=== PATIENT | male | born 1935 | race Caucasian/White ===

== ENCOUNTER 2016-12-25 07:08 | Outpatient (CLI) | payer MEDICARE, OTHER | END 2016-12-25 07:09 | disposition home or self-care (01) | DX: E11.9 Type 2 diabetes mellitus without complications (principal); I10 Essential (primary) hypertension; J44.9 Chronic obstructive pulmonary disease, unspecified ==

== ENCOUNTER 2017-08-21 08:27 | Outpatient (CLI) | payer MEDICARE, OTHER ==
[2017-08-21 10:27] LABS: BASOPHILS # (AUTO) 0.1 10^3/uL (0.0-0.1); BASOPHILS % (AUTO) 0.8 %; EOSINOPHILS # (AUTO) 0.2 10^3/uL (0.0-0.7); EOSINOPHILS % (AUTO) 2.2 %; HCT - HEMATOCRIT 42.7 % (42.0-52.0); HGB - HEMOGLOBIN 14.2 g/dL (14.0-18.0); LYMPHOCYTES # (AUTO) 2.1 10^3/uL (1.5-3.5); LYMPHOCYTES % (AUTO) 21.3 %; MEAN CORPUSCULAR HEMOGLOBIN 31.7 pg (27.0-31.0); MEAN CORPUSCULAR HGB CONC 33.3 g/dL (32.0-36.0); MEAN CORPUSCULAR VOLUME 95.1 fL (80.0-94.0); MEAN PLATELET VOLUME 9.2 fL (7.4-11.4); MONOCYTES % (AUTO) 10.1 %; NEUTROPHILS # (AUTO) 6.6 10^3/uL (1.5-6.6); NEUTROPHILS % (AUTO) 65.6 %; RED BLOOD COUNT 4.49 10^6/uL (4.70-6.10); RED CELL DISTRIBUTION WIDTH 13.7 % (12.0-15.0)
[2017-08-21 10:46] LABS: ALBUMIN/GLOBULIN RATIO 1.1 (1.0-2.2); BILIRUBIN,TOTAL 0.8 mg/dL (0.2-1.0); BUN - BLOOD UREA NITROGEN 21 mg/dL (6-20); CALCIUM 9.4 mg/dL (8.5-10.3); CARBON DIOXIDE - CO2 29 mmol/L (21-32); CHLORIDE 104 mmol/L (101-111); CHOL/HDL RATIO 3.8 (<5.0); CHOLESTEROL 177 mg/dL; CREATININE 1.4 mg/dL (0.6-1.2); GFR - MDRD 49 (>89); GLUCOSE 106 mg/dL (70-100); HDL CHOLESTEROL 47 mg/dL; LDL/HDL RATIO 2.5 (<3.6); POTASSIUM 4.2 mmol/L (3.5-5.0); SODIUM 141 mmol/L (135-145); TOTAL PROTEIN 6.8 g/dL (6.7-8.2); TRIGLYCERIDES 72 mg/dL; VLDL CHOLESTEROL 14 mg/dL
[2017-08-21 11:14] LABS: HEMOGLOBIN A1C 0.72 g/dL
== END 2017-08-21 08:28 | disposition home or self-care (01) ==
LOC: LAB.F 08:27
PROVIDERS: ATTEND Internal Medicine
DX: I10 Essential (primary) hypertension (principal); E11.9 Type 2 diabetes mellitus without complications; E78.00 Pure hypercholesterolemia, unspecified; E78.5 Hyperlipidemia, unspecified
CPT/HCPCS: 36415; 80053; 80061; 83036; 84443; 85025

== ENCOUNTER 2018-01-15 09:35 | Outpatient (CLI) | payer MEDICARE, OTHER ==
[2018-01-15 17:28] LABS: CALCIUM 8.9 mg/dL (8.5-10.3); CREATININE 1.2 mg/dL (0.6-1.2)
[2018-01-15 18:07] LABS: HB2 TOTAL 15.2 g/dL; HEMOGLOBIN A1C 0.72 g/dL; HEMOGLOBIN A1C % 6.5 % (4.6-6.2)
== END 2018-01-15 09:36 | disposition home or self-care (01) ==
LOC: LAB.F 09:35
PROVIDERS: ATTEND Family Medicine
DX: I10 Essential (primary) hypertension (principal); E11.9 Type 2 diabetes mellitus without complications
CPT/HCPCS: 36415; 80048; 83036

== ENCOUNTER 2018-02-28 09:28 | Outpatient (CLI) | payer MEDICARE, OTHER ==
[2018-02-28 18:27] LABS: ALBUMIN 3.6 g/dL (3.2-5.5); ALBUMIN/GLOBULIN RATIO 1.2 (1.0-2.2); BILIRUBIN,TOTAL 0.7 mg/dL (0.2-1.0); CREATININE 1.3 mg/dL (0.6-1.2); TOTAL PROTEIN 6.6 g/dL (6.7-8.2)
== END 2018-02-28 09:29 | disposition home or self-care (01) ==
LOC: LAB.F 09:28
PROVIDERS: ATTEND Physician Assistant Medical
DX: Z51.81 Encounter for therapeutic drug level monitoring (principal); Z79.899 Other long term (current) drug therapy
CPT/HCPCS: 36415; 80053

== ENCOUNTER 2020-03-17 20:18 | Outpatient (CLI) | payer MEDICARE, OTHER | END 2020-03-17 20:19 | disposition critical access hospital (66) | LOC: EMS 20:18 | PROVIDERS: ATTEND Surgery | DX: R11.10 Vomiting, unspecified (principal); R53.1 Weakness; R73.09 Other abnormal glucose | CPT/HCPCS: A0425; A0429 ==

== ENCOUNTER 2020-03-17 20:45 | Emergency (ER) | payer MEDICARE, OTHER ==
--- NOTE | 2020-03-17 20:55 | ED Physician Documentation ---
History of Present Illness - Stated complaint Stated Complaint: FOUND DOWN, COFFEE GROUND VOMIT - Chief complaint Chief Complaint: Critical Care - History obtained from History obtained from: EMS - History of Present Illness Timing: Unknown Pain level now: 0 Improved by: no ameliorating factors Worsened by: no apparent exacerbating factors Associated symptoms: weakness, coffee-ground emesis - Additonal information Additional information: BIBJavier. called 911 when she found patient on bathroom floor between the toilet and the wall. Last known normal not known, nor is how long he was on the floor. Patient answers questions quietly, slowly, and with slurred speech but able to answer most questions with appropriate answers. He says he went to stand from toilet and found he was too weak to support himself. Review of Systems Constitutional: denies: Fever Eyes: denies: Loss of vision, Decreased vision, Photophobia Cardiac: denies: Chest pain / pressure Respiratory: denies: Dyspnea GI: reports: Vomiting, Hematemesis. denies: Abdominal Pain Musculoskeletal: reports: Reviewed and negative Neurologic: reports: Generalized weakness, Focal weakness. denies: Numbness, Headache PD PAST MEDICAL HISTORY - Past Medical History Cardiovascular: Hypertension Endocrine/Autoimmune: Type 2 diabetes - Past Surgical History Past Surgical History: No - Present Medications Home Medications: Ambulatory Orders Medication Instructions Recorded Confirmed Losartan [Cozaar] 50 mg PO BID 06/01/14 03/17/20 Metformin HCl 500 mg PO DAILY PRN 06/01/14 03/17/20 Rosuvastatin Calcium [Crestor] 5 mg PO DAILY 03/17/20 03/17/20 - Allergies Allergies/Adverse Reactions: Allergies Allergy/AdvReac Type Severity Reaction Status Date / Time No Known Drug Allergies Allergy Verified 03/17/20 20:53 - Social History Does the pt smoke?: No Smoking Status: Never smoker Does the pt drink ETOH?: Yes Does the pt have substance abuse?: No PD ED PE NORMAL - Vitals Vital signs reviewed: Yes - General General: Alert and oriented X 3, Well developed/nourished - HEENT HEENT: Atraumatic, PERRL, Moist mucous membranes - Neck Neck: Supple, no meningeal sign, No bony TTP - Respiratory Respiratory: No respiratory distress, Clear bilaterally - Abdomen Abdomen: Soft, Non tender - Back Back: No spinal TTP - Derm Derm: Normal color, Warm and dry - Extremities Extremities: Normal ROM s pain, No edema - Neuro Eye Opening: Spontaneous Motor: Obeys Commands Verbal: Oriented GCS Score: 15 PD ED PE EXPANDED - HEENT HEENT: PERRL - Cardiac Cardiac: Tachy, Regular Rhythm - Neuro Neuro: Dysarthria, Other (left facial droop. right gaze preference. cannot track (with gaze) past midline to left. left radha-neglect (initially does not follow commands to raise left arm or left leg, but does so after I test right side)) - GCS Eye Opening: Spontaneous Motor: Obeys Commands Verbal: Oriented Total: 15 Results - Vitals Vitals: Oxygen O2 Source Room air - EKG (time done) No standard instances Rate: Rate (enter#) (136), Tachy [place]: LAD Intervals: Normal NE QRS: Normal Ischemia: Normal ST segments Other comments: Other comments (late transition/poor r wave progression) - Labs Labs: Microbiology 03/17/20 21:40 Urine Culture - Preliminary Urine,Catheterized CULTURE IN PROGRESS. RESULTS TO FOLLOW. Laboratory Tests 03/17/20 03/17/20 03/17/20 20:50 20:50 20:50 WBC 25.5 H RBC 4.82 Hgb 15.2 Hct 46.3 MCV 96.1 H MCH 31.5 H MCHC 32.8 RDW 13.6 Plt Count 315 MPV 10.3 Neut # (Auto) Not Reportable Lymph # (Auto) Not Reportable Sunflower # (Auto) Not Reportable Eos # (Auto) Not Reportable Baso # (Auto) Not Reportable Absolute Nucleated RBC Not Reportable Total Counted 100 Band Neuts % (Manual) 10 Abnorm Lymph % (Manual) 0 Nucleated RBC % Not Reportable Neutrophils # (Manual) 23.0 H Lymphocytes # (Manual) 0.5 L Monocytes # (Manual) 2.0 H Eosinophils # (Manual) 0.0 Basophils # (Manual) 0.0 Differential Comment MANUAL DIFFERENTIAL Manual Slide Review Indicated WBC Morphology NORMAL APPEARANCE Platelet Estimate NORMAL (130-450,000) Platelet Morphology NORMAL APPEARANCE RBC Morph Micro Appear NORMAL APPEARANCE PT 12.7 H INR 1.1 APTT 30.0 Sodium 140 Potassium 4.1 Chloride 106 Carbon Dioxide 20 L Anion Gap 14.0 H BUN 28 H Creatinine 1.8 H Estimated GFR (MDRD) 36 L Glucose 240 H Calcium 9.6 Total Bilirubin 1.0 AST 57 H ALT 24 Alkaline Phosphatase 66 Total Creatine Kinase 3176 H* CK-MB (CK-2) Troponin I High Sens Total Protein 7.4 Albumin 3.9 Globulin 3.5 Albumin/Globulin Ratio 1.1 Lipase 27 TSH Urine Color Urine Clarity Urine pH Ur Specific [place] Urine Protein Urine Glucose (UA) Urine Ketones Urine Occult Blood Urine Nitrite Urine Bilirubin Urine Urobilinogen Ur Leukocyte Esterase Urine RBC Urine WBC Ur Squamous Epith Cells Urine Bacteria Urine Casts Ur Microscopic Review Urine Culture Comments 03/17/20 03/17/20 03/17/20 20:50 20:50 20:50 WBC RBC Hgb Hct MCV MCH MCHC RDW Plt Count MPV Neut # (Auto) Lymph # (Auto) Sunflower # (Auto) Eos # (Auto) Baso # (Auto) Absolute Nucleated RBC Total Counted Band Neuts % (Manual) Abnorm Lymph % (Manual) Nucleated RBC % Neutrophils # (Manual) Lymphocytes # (Manual) Monocytes # (Manual) Eosinophils # (Manual) Basophils # (Manual) Differential Comment Manual Slide Review WBC Morphology Platelet Estimate Platelet Morphology RBC Morph Micro Appear PT INR APTT Sodium Potassium Chloride Carbon Dioxide Anion Gap BUN Creatinine Estimated GFR (MDRD) Glucose Calcium Total Bilirubin AST ALT Alkaline Phosphatase Total Creatine Kinase CK-MB (CK-2) 44.2 H Troponin I High Sens 62.7 H* Total Protein Albumin Globulin Albumin/Globulin Ratio Lipase TSH 3.52 Urine Color Urine Clarity Urine pH Ur Specific [place] Urine Protein Urine Glucose (UA) Urine Ketones Urine Occult Blood Urine Nitrite Urine Bilirubin Urine Urobilinogen Ur Leukocyte Esterase Urine RBC Urine WBC Ur Squamous Epith Cells Urine Bacteria Urine Casts Ur Microscopic Review Urine Culture Comments 03/17/20 21:40 WBC RBC Hgb Hct MCV MCH MCHC RDW Plt Count MPV Neut # (Auto) Lymph # (Auto) Sunflower # (Auto) Eos # (Auto) Baso # (Auto) Absolute Nucleated RBC Total Counted Band Neuts % (Manual) Abnorm Lymph % (Manual) Nucleated RBC % Neutrophils # (Manual) Lymphocytes # (Manual) Monocytes # (Manual) Eosinophils # (Manual) Basophils # (Manual) Differential Comment Manual Slide Review WBC Morphology Platelet Estimate Platelet Morphology RBC Morph Micro Appear PT INR APTT Sodium Potassium Chloride Carbon Dioxide Anion Gap BUN Creatinine Estimated GFR (MDRD) Glucose Calcium Total Bilirubin AST ALT Alkaline Phosphatase Total Creatine Kinase CK-MB (CK-2) Troponin I High Sens Total Protein Albumin Globulin Albumin/Globulin Ratio Lipase TSH Urine Color YELLOW Urine Clarity CLEAR Urine pH 6.5 Ur Specific [place] 1.015 Urine Protein NEGATIVE Urine Glucose (UA) NEGATIVE Urine Ketones NEGATIVE Urine Occult Blood MODERATE H Urine Nitrite POSITIVE H Urine Bilirubin NEGATIVE Urine Urobilinogen 0.2 (NORMAL) Ur Leukocyte Esterase SMALL H Urine RBC 6-10 H Urine WBC >25 H Ur Squamous Epith Cells NONE SEEN Urine Bacteria Few Urine Casts 6-10 Hyaline Casts Ur Microscopic Review INDICATED Urine Culture Comments INDICATED - Rads (name of study) CTH Radiology: Prelim report reviewed, See rad report CTA head Radiology: Prelim report reviewed, See rad report CTA neck Radiology: Prelim report reviewed, See rad report chest xray Radiology: Prelim report reviewed, See rad report PD MEDICAL DECISION MAKING - ED course Complexity details: reviewed results, re-evaluated patient, considered differential ED course: ED RN contacted patient's regarding "last known normal". She initially said it was in the morning, subsequently said several hours [employer] without being able to provide a more specific timeframe. On exam, he has right gaze preference, cannot track past midline when looking to his left. He has left radha-neglect. He has left facial droop with resulting dysarthric speech. reportedly had coffee-ground emesis at scene. he had coffee-ground material in his mouth on arrival; this was sampled with a gloved finger and was guaiac positive. He has h/o ICH (2013). Presentation is s/o CVA. tPA contraindications include unknown last known normal (unknown time of onset of deficits), EMS report of coffee-ground emesis on scene with material in patient's mouth on arrival that is strong guaiac positive, and h/o ICH (intraparenchymal hemorrhage documented on CTH 06/11/14. D/W Dr. Lovelace (hospitalist for [facility]). He recommends transfer to another hospital due to lack of MRI availability at [facility] over the next 4 days. I then d/w Dr. Wilks ([facility]). She recommends that I obtain CTA head/neck before considering transfer; if CTA head reveals large vessel occlusion, patient might benefit from transfer to another hospital with capability to perform intervention for this. CTA head/neck performed and these demonstrate no large vessel occlusion. I then d/w Dr. Royal at [facility] and he accepts patient for transfer. On reexamination prior to transfer, patient is asleep, awakens to voice. His deficits are unchanged, most notably the rightward gaze and left facial droop. He is disoriented to place, stating he is in his bed in his bedroom (could be result of waking him up from sleep). Departure - Departure Disposition: 02 Transfer Acute Care Hosp Clinical Impression: Cerebrovascular accident (CVA) Qualifiers: CVA mechanism: unspecified Qualified Code(s): I63.9 - Cerebral infarction, unspecified Condition: Serious Discharge Date/Time: 03/18/20 03:50
[2020-03-17] MEDS ORDERED: IOVERSOL 320 100 ML VIAL IVP ONE ×3 (20:57→23:53)
[2020-03-17] MEDS ORDERED: SODIUM CHLORIDE 0.9% 500 ML IV STA (20:58)
[2020-03-17 21:04] LABS: BASOPHILS % (AUTO) 0.4 %; HGB - HEMOGLOBIN 15.2 g/dL (14.0-18.0); LYMPHOCYTES % (AUTO) 3.5 %; MEAN CORPUSCULAR HEMOGLOBIN 31.5 pg (27.0-31.0); MEAN CORPUSCULAR HGB CONC 32.8 g/dL (32.0-36.0); MEAN CORPUSCULAR VOLUME 96.1 fL (80.0-94.0); MEAN PLATELET VOLUME 10.3 fL (7.4-11.4); MONOCYTES % (AUTO) 6.2 %; NEUTROPHILS % (AUTO) 88.6 %; PLT - PLATELET COUNT 315 10^3/uL (130-450); RED BLOOD COUNT 4.82 10^6/uL (4.70-6.10); RED CELL DISTRIBUTION WIDTH 13.6 % (12.0-15.0); WHITE BLOOD COUNT 25.5 x10^3/uL (4.8-10.8)
[2020-03-17 21:11] LABS: ABNORMAL LYMPHS % (MANUAL) 0 %
[2020-03-17 21:13] LABS: INR 1.1 (0.8-1.2); PT - PROTHROMBIN TIME 12.7 secs (9.9-12.6)
--- NOTE | 2020-03-17 21:16 | CT Report ---
Reason: weakness Procedure Date: 03/17/2020 Accession Number: [id number] / [id number] Procedure: CT - Head W/O Stroke Protocol CPT Code: Addended Final Report FULL RESULT: EXAM: CT HEAD EXAM DATE: 03/17/2020 09:08 PM. CLINICAL HISTORY: 84-year-old male. Weakness. COMPARISON: HEAD W/O 06/01/2014 10:21 AM. TECHNIQUE: Multiaxial CT images were obtained from the foramen magnum to the vertex. Reformats: Sagittal and coronal. IV contrast: None. In accordance with CT protocol optimization, one or more of the following dose reduction techniques were utilized for this exam: automated exposure control, adjustment of mA and/or KV based on patient size, or use of iterative reconstructive technique. FINDINGS: Parenchyma: No intraparenchymal hemorrhage. No evidence of mass, midline shift, or CT findings of acute infarction. [place]-white differentiation is distinct. Diffuse chronic microangiopathic white matter changes are evident. Extraaxial Spaces: Normal for age. No subdural or epidural collections identified. Ventricles: The ventricles and cortical sulci are enlarged, consistent with age-related tissue loss. Sinuses and orbits: Imaged paranasal sinuses, orbits, and mastoids show no significant abnormality. Bones: No evidence of fracture or calvarial defect. Other: Moderate atherosclerosis intracranial arteries. IMPRESSION: Generalized age-related cortical atrophic changes without evidence of acute intracranial abnormality. ASPECTS 10. RADIA The critical test notification system was initiated by Dr. Joe Odom at 09:13 PM on 03/17/2020. ADDENDUM: 03/17/20 21:21 The above critical test findings were discussed with Hubert Oviedo by Dr. Joe Odom at 09:21 PM on 03/17/2020.
--- NOTE | 2020-03-17 21:18 | XRAY Report ---
Reason: chest pain Procedure Date: 03/17/2020 Accession Number: [id number] / [id number] Procedure: XR - Chest 1 View X-Ray CPT Code: 14138 Final Report FULL RESULT: EXAM: CHEST RADIOGRAPHY EXAM DATE: 03/17/2020 09:10 PM. CLINICAL HISTORY: Chest pain. COMPARISON: CHEST 1 VIEW 06/01/2014 10:27 AM. TECHNIQUE: 1 view. FINDINGS: Lungs/Pleura: No focal opacities evident. No pleural effusion. No pneumothorax. Mediastinum: Normal heart size. Aortic arch calcifications noted. Other: None. IMPRESSION: Unremarkable chest radiograph. RADIA
[2020-03-17 21:20] LABS: BAND NEUTROPHILS % (MANUAL) 10 %; LYMPHOCYTES # (MANUAL) 0.5 10^3/uL (1.5-3.5); LYMPHOCYTES % (MANUAL) 2 %; PLATELET ESTIMATE, MANUAL NORMAL (130-450,000) (NORMAL); PLATELET MORPHOLOGY NORMAL APPEARANCE (NORMAL); RBC MORPHOLOGY (MULTIPLE) NORMAL APPEARANCE (NORMAL)
[2020-03-17 21:21] LABS: DIFFERENTIAL COMMENT MANUAL DIFFERENTIAL
[2020-03-17 21:28] LABS: ALBUMIN 3.9 g/dL (3.2-5.5); ALBUMIN/GLOBULIN RATIO 1.1 (1.0-2.2); CALCIUM 9.6 mg/dL (8.5-10.3); CREATININE 1.8 mg/dL (0.6-1.2); TOTAL PROTEIN 7.4 g/dL (6.7-8.2)
[2020-03-17 21:59] LABS: BILIRUBIN,URINE NEGATIVE (NEGATIVE); GLUCOSE, URINE (UA) NEGATIVE (NEGATIVE); KETONES,URINE (UA) NEGATIVE (NEGATIVE); LEUKOCYTE ESTERASE, URINE SMALL (NEGATIVE); NITRITE,URINE POSITIVE (NEGATIVE); OCCULT BLOOD,URINE MODERATE (NEGATIVE); PH,URINE 6.5 PH (5.0-7.5); PROTEIN,URINE NEGATIVE (NEGATIVE); UROBILINOGEN,URINE 0.2 (NORMAL) E.U./dL (NORMAL)
[2020-03-17 22:00] LABS: CLARITY,URINE CLEAR (CLEAR)
[2020-03-17 22:09] LABS: BACTERIA,URINE Few /HPF (None Seen); SQUAMOUS EPITHELIAL CELL,UR NONE SEEN (<= Few)
[2020-03-17 22:10] LABS: CASTS, URINE 6-10 Hyaline Casts /LPF
[2020-03-17] MEDS ORDERED: cefTRIAXone 1 GM in SODIUM CHLORIDE 0.9% MINIBAG 100 ML IV STA (22:35)
--- NOTE | 2020-03-18 00:59 | CT Report ---
Reason: focal neuro deficits Procedure Date: 03/17/2020 Accession Number: [id number] / [id number] Procedure: CT - ANGIO HEAD W/WO CPT Code: Final Report FULL RESULT: EXAM: CT ANGIOGRAM HEAD AND NECK. CT SCAN HEAD WITHOUT AND WITH CONTRAST. EXAM DATE: 03/17/2020 11:56 PM. CLINICAL HISTORY: Focal neuro deficits. COMPARISON: ANGIO HEAD W/WO 03/17/2020 11:14 PM HEAD WO 03/17/2020 9:01 PM. TECHNIQUE: Routine axial helical CTA imaging was performed from the aortic arch through the [place] of [place]. Routine axial CT imaging of the head was performed prior to and following contrast administration. Reconstructions: Routine multiplanar 3D MIP reconstructions. IV contrast: OPTIRAY 320, 80 mL. NASCET Criteria are used for stenosis measurements. In accordance with CT protocol optimization, one or more of the following dose reduction techniques were utilized for this exam: automated exposure control, adjustment of mA and/or KV based on patient size, or use of iterative reconstructive technique. FINDINGS: Mild to moderate aortic calcification is noted. The great vessels are patent. There is mild luminal irregularity and atherosclerotic plaque in the proximal left subclavian artery. There is no high-grade stenosis. Right Carotid: The common carotid artery is patent. There is moderate atherosclerotic plaque at the carotid bifurcation extending into the proximal ICA and ECA. This produces narrowing of approximately 50% by NASCET criteria. Left Carotid: The common carotid artery is patent. Moderate atherosclerotic plaque and calcification are noted at the carotid bifurcation extending to the proximal ICA and ECA. This produces narrowing of approximately 50% by NASCET criteria. Vertebrals: The vertebral arteries are normal in caliber with no evidence of significant stenosis or dissection. Intracranial Circulation: Mild atherosclerotic calcification is visualized in the cavernous carotid segments without evidence of significant stenosis. The vertebral arteries are widely patent. There is moderate focal stenosis at the distal basilar artery proximal to the superior cerebellar and posterior cerebral arteries. The vertebral arteries are widely patent with mild vascular calcification noted in the proximal intradural segments. The anterior, middle and posterior cerebral arteries are normal in caliber. There is no high grade stenosis, thrombosis, dissection or aneurysm in the intracranial vasculature. Other: Advanced multilevel cervical spondylosis is noted in the mid and lower cervical spine. No acute osseous abnormality is identified. The lung apices are grossly clear. IMPRESSION: CT head: 1. Noncontrast CT dictated unchanged compared to prior CT from 2 hours earlier. Please see separate dictation. 2. No abnormal enhancement. CTA neck: 1. Moderate atherosclerotic changes at the carotid bifurcations producing luminal irregularity and narrowing of approximately 50% by NASCET criteria. 2. No evidence of carotid or vertebral artery dissection. CTA head: 1. 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 2. No evidence of central large vessel occlusion. 3. Mild atherosclerotic changes otherwise noted throughout the vasculature. No high-grade stenosis, aneurysm or dissection identified. RADIA
[2020-03-18] MEDS ORDERED: SODIUM CHLORIDE 0.9% 1,000 ML IV STA ×2 (01:54→02:58)
[2020-03-18 03:15] VITALS: BP 124/74
== END 2020-03-18 03:50 | disposition short-term general hospital (02) ==
LOC: EDUNIT# → ED 20:45
DX: I10 Essential (primary) hypertension (principal); E11.9 Type 2 diabetes mellitus without complications; Z79.84 Long term (current) use of oral hypoglycemic drugs; R47.1 Dysarthria and anarthria; I63.9 Cerebral infarction, unspecified
CPT/HCPCS: 36415; 51701; 70450; 70496; 70498; 71045; 80053; 81001; 82550; 82553; 83690; 84443; 84484; 85025; 85610; 85730; 87077; 87086; 87181; 93005; 96361; 96365; 99284; 99285; Q9967; 81003